=== PATIENT | female | born 1990 | race African-American/Black ===

== ENCOUNTER 2016-11-28 15:10 | Emergency (ER) | payer OTHER ==
[~2016-11-28] VITALS: Ht 167.6 cm; Wt 89.8 kg
[~2016-11-28 15:10] MED LIST: AMOXICILLIN500 MG ORAL; EXCEDRIN MIGRA1 EACH PO; NORCO 5-325 TA1 EACH ORAL; PROMETHAZINE-C118 M1 ORAL; PSEUDOEPHEDRINE60 MG PO
[2016-11-28] MEDS ORDERED: ROBAXIN-750750 MG PO (15:42)
[2016-11-28] MEDS ORDERED: PROMETHAZI6.25 MG/1 ORAL (15:42)
[2016-11-28] MEDS ORDERED: PREDNISONE20 MG ORAL (15:42)
[2016-11-28] MEDS ORDERED: IBUPROFEN600 MG ORAL (15:42)
[2016-11-28] MEDS ORDERED: Ketorolac 30mg Inj IM ONE (15:45)
[2016-11-28 15:59] VITALS: BP 117/66
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
== END 2016-11-28 16:01 | disposition home or self-care (01) ==
LOC: EMR 15:55
DX: J02.9 Acute pharyngitis, unspecified (principal); M54.2 Cervicalgia; M54.9 Dorsalgia, unspecified; T14.8 Other injury of unspecified body region; V47.6XXA Car passenger injured in collision with fixed or stationary object in traffic accident, initial encounter; Y93.9 Activity, unspecified; Y92.9 Unspecified place or not applicable
CPT/HCPCS: 96372; 99284; J1885

== ENCOUNTER 2017-03-04 16:17 | Emergency (ER) | payer OTHER ==
[~2017-03-04] VITALS: Ht 170.2 cm; Wt 86.2 kg
[~2017-03-04 16:17] MED LIST changes: +IBUPROFEN600 MG ORAL; +PREDNISONE20 MG ORAL; +PROMETHAZI6.25 MG/1 ORAL; +ROBAXIN-750750 MG PO
[2017-03-04 17:25] LABS: APPEARANCE,URINE CLEAR; KETONES,URINE NEGATIVE (NEGATIVE); LEUKOCYTE ESTERASE ,URINE NEGATIVE (NEGATIVE); NITRITE,URINE NEGATIVE (NEGATIVE); PH,URINE 7 (4.5-8.0); PROTEIN,URINE NEGATIVE (NEGATIVE); UROBILINOGEN,URINE NORMAL MG/DL (0.0-1.0)
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
[2017-03-04] MEDS ORDERED: LIDODERM700 M1 TOPIC (17:47)
[2017-03-04 18:04] VITALS: BP 118/83
[2017-03-04 18:07] VITALS: BP 118/83
--- NOTE | 2017-03-12 17:19 | Cardiology Report ---
APPROVED REPORT EKG Measurement Heart [id number] ID [id number] Normal sinus rhythm Normal ECG
== END 2017-03-04 18:00 | disposition home or self-care (01) ==
LOC: EMR 17:08
DX: R55 Syncope and collapse (principal); S40.012A Contusion of left shoulder, initial encounter; X58.XXXA Exposure to other specified factors, initial encounter; Y93.9 Activity, unspecified; Y99.9 Unspecified external cause status; R51 Headache
CPT/HCPCS: 80307; 81003; 81025; 93005; 99284

== ENCOUNTER 2017-09-15 21:40 | Emergency (ER) | payer MEDICAID, OTHER ==
[~2017-09-15] VITALS: Ht 170.2 cm; Wt 88.0 kg
[~2017-09-15 21:40] MED LIST changes: +LIDODERM700 M1 TOPIC
[2017-09-15 22:00] VITALS: BP 107/72
--- NOTE | 2017-09-15 22:26 | Emergency Room Report ---
History of Present Illness General Chief Complaint: Abdominal Pain Source: Patient Present Illness HPI Is a 27-year-old female with no past medical history. She presents with chief complaint of abdominal cramps and vomiting for last 2 days. Vomiting is nonbloody nonbilious. No diarrhea. Able to keep water down. No diarrhea. Nothing made it better. Eating made it worse. Allergies: Coded Allergies: No Known Allergies (Unverified , 05/28/15) Patient History Past Medical History: see triage record, old chart reviewed Past Surgical History: marylin Pertinent Family History: none Social History: Denies: smoking Last Menstrual Period: 09/01/2017 Now: No : 1 Para: 0 Immunizations: other Reviewed Nursing Documentation: PMH: Agreed; PSxH: Agreed Nursing Documentation-PMH Past Medical History: No History, Except For Review of Systems Eye: Denies: eye pain, blurred vision ENT: Denies: ear pain, nose congestion, throat swelling Respiratory: Denies: cough, shortness of breath Cardiovascular: Denies: chest pain, palpitations Gastrointestinal: Reports: abdominal pain, nausea, vomiting; Denies: diarrhea Musculoskeletal: Denies: back pain, joint pain Skin: Denies: rash Neurological: Denies: headache, numbness Endocrine: Denies: increased thirst, increased urine Hematologic/Lymphatic: Denies: easy bruising All Other Systems: negative except mentioned in HPI Physical Exam Vital Signs Date Time Temp Pulse Resp B/P (MAP) Pulse Ox O2 Delivery O2 Flow Rate FiO2 09/15/17 21:45 98.1 88 16 107/72 98 Room Air 98.1 vitals normal Sp02 EP Interpretation: reviewed, normal General Appearance: well appearing, no apparent distress, alert Head: normocephalic, atraumatic Eyes: bilateral eye PERRL, bilateral eye EOMI ENT: hearing grossly normal, normal pharynx Neck: full range of motion, supple, no meningismus Respiratory: chest non-tender, lungs clear, normal breath sounds Cardiovascular #1: regular rate, rhythm, no murmur Gastrointestinal: non tender, no mass, no organomegaly, no bruit, non-distended , decreased bowel sounds Musculoskeletal: back normal, gait/station normal, normal range of motion Psychiatric: mood/affect normal Skin: warm/dry Medical Decision Making Diagnostic Impression: Primary Impression: Abdominal pain Qualified Codes: R10.84 - Generalized abdominal pain Additional Impression: Nausea & vomiting Qualified Codes: R11.2 - Nausea with vomiting, unspecified ER Course This patient presents with abdominal pain and nausea and vomiting. CT scan unremarkable. No evidence of any obstruction or acute abdomen. CT show complex bilateral adnexal mass. No urinary complaint. No vaginal discharge or pain. She can have an ultrasound as an outpatient. Lab Results Impression labs normal CT/MRI/US Diagnostic Results CT/MRI/US Diagnostic Results : Imaging Test Ordered: CT abdomen and pelvis Impression complex bilateral adnexal lesions per radiologist Last Vital Signs Date Time Temp Pulse Resp B/P (MAP) Pulse Ox O2 Delivery O2 Flow Rate FiO2 09/15/17 21:45 98.1 88 16 107/72 98 Room Air 98.1 Status: improved Disposition: HOME, SELF-CARE Condition: Stable Scripts Ondansetron (Zofran) 4 Mg Tablet 4 MG ORAL Q6H PRN for Nausea & Vomiting, #10 TAB 0 Refills Prov: ELYSIA TIMMONS M.D. 09/16/17 Patient Instructions: Abdominal Pain, Adult Additional Instructions: Follow-up with your DrMaylin in 2-[address] scan showed ovarian cyst/lesion bilaterally. Your DrMaylin in order an outpatient ultrasound to evaluate this.Return if worse. ELYSIA TIMMONS M.D. Sep 15, 2017 22:26
[2017-09-15 22:31] LABS: APPEARANCE,URINE CLEAR; BASOPHILS % (AUTO) 1.8 % (0.0-2.0); BILIRUBIN, URINE NEGATIVE (NEGATIVE); COLOR,URINE PALE YELLOW; EOSINOPHILS % (AUTO) 1.5 % (0.0-3.0); GLUCOSE, URINE (UA) NEGATIVE (NEGATIVE); HEMATOCRIT 38.3 % (37.0-47.0); HEMOGLOBIN 12.8 G/DL (12.0-16.0); KETONES,URINE NEGATIVE (NEGATIVE); LEUKOCYTE ESTERASE ,URINE NEGATIVE (NEGATIVE); MEAN CORPUSCULAR VOLUME 90 FL (80-99); MONOCYTES % (AUTO) 6.7 % (1.0-10.0); NITRITE,URINE NEGATIVE (NEGATIVE); PH,URINE 6.5 (4.5-8.0); PLATELET COUNT 226 K/UL (150-450); PROTEIN,URINE NEGATIVE (NEGATIVE); RED BLOOD COUNT 4.23 M/UL (4.20-5.40); RED CELL DISTRIBUTION WIDTH 11.7 % (11.6-14.8); UROBILINOGEN,URINE NORMAL MG/DL (0.0-1.0); WHITE BLOOD COUNT 6.8 K/UL (4.8-10.8)
[2017-09-15 22:33] LABS: ANION GAP 10 mmol/L (5-15); BLOOD UREA NITROGEN 17 mg/dL (7-18); CALCIUM 9.2 MG/DL (8.5-10.1); CARBON DIOXIDE 28 MMOL/L (21-32); CHLORIDE 103 MMOL/L (98-107); CREATININE 0.8 MG/DL (0.55-1.30); SODIUM 140 MMOL/L (136-145)
[2017-09-15 22:38] LABS: ALANINE AMINOTRANSFERASE 19 U/L (12-78); ALBUMIN 3.8 G/DL (3.4-5.0); ALKALINE PHOSPHATASE 50 U/L (46-116); ASPARTATE AMINO TRANSFERASE 16 U/L (15-37); BILIRUBIN,TOTAL 0.3 MG/DL (0.2-1.0)
[2017-09-16] MEDS ORDERED: ZOFRAN4 MG ORAL (00:10)
[2017-09-16 00:24] VITALS: BP 107/72
--- NOTE | 2017-09-16 09:24 | Diagnostic Imaging Report ---
Indication: Abdominal pain Technique: Spiral acquisitions obtained through the abdomen and pelvis. No oral contrast utilized, per emergency room physician request No IV contrast utilized, per referring physician request.. Multiplanar reconstructions were generated. Total dose length product 970.18 mGycm. CTDIvol(s) 18.16 mGy. Dose reduction achieved using automated exposure control Comparison: None Findings: The appendix is normal. There is no evidence of diverticulosis or diverticulitis. No small bowel distention. No free or loculated intraperitoneal air or fluid is evident. Distal esophagus, stomach, duodenum are unremarkable. Lack of IV contrast limits assessment of the solid organs. The gallbladder is surgically absent. The liver, bile ducts, pancreas, spleen, adrenals, kidneys are all unremarkable. The right ovary is enlarged, measuring approximately 6.3 x 6.4 x 3.8 cm centimeters contains multiple cysts or a hydrosalpinx. The uterus and left ovary are unremarkable. Impression: No acute abnormality Enlarged right ovary with multiple cysts or hydrosalpinx. Ultrasound is recommended for further evaluation. This agrees with the preliminary interpretation provided overnight by [facility] service. The CT scanner at [facility] is accredited by the [employer] and the scans are performed using protocols designed to limit radiation exposure to as low as reasonably achievable to attain images of sufficient resolution adequate for diagnostic evaluation.
== END 2017-09-16 00:24 | disposition home or self-care (01) ==
LOC: EMR 22:04
DX: R10.84 Generalized abdominal pain (principal); R11.2 Nausea with vomiting, unspecified; Z90.49 Acquired absence of other specified parts of digestive tract
CPT/HCPCS: 36415; 74176; 80053; 81003; 81025; 83690; 85025; 96374; 96375; 99284; J2405